=== PATIENT | male | born 1990 | race Caucasian/White ===

== ENCOUNTER 2022-01-24 11:33 | Emergency (ER) | payer OTHER ==
[2022-01-24 11:53] LABS: HEMOGLOBIN 14.1 gm/dl (14.0-17.5); RED BLOOD COUNT 4.85 M/UL (4.20-5.50); WHITE BLOOD COUNT 10.2 K/UL (4.5-11.0)
[2022-01-24 12:54] LABS: BUN/CREATININE RATIO 15 (0-10)
[2022-01-24] MEDS ORDERED: IBUPROFEN800 MG PO (13:04)
== END 2022-01-24 13:36 | disposition home or self-care (01) ==
LOC: ER1 11:33
PROVIDERS: Emergency Medicine
DX: R07.89 Other chest pain (principal); F17.200 Nicotine dependence, unspecified, uncomplicated
CPT/HCPCS: 71045; 80053; 82550; 82553; 84484; 85025; 93005; 99285

== ENCOUNTER 2022-03-02 20:50 | Emergency (ER) | payer OTHER ==
[~2022-03-02 20:50] MED LIST: IBUPROFEN800 MG PO
[2022-03-02 22:00] LABS: HEMOGLOBIN 14.9 gm/dl (14.0-17.5); RED BLOOD COUNT 5.03 M/UL (4.20-5.50); WHITE BLOOD COUNT 8.4 K/UL (4.5-11.0)
[2022-03-02 22:18] LABS: BUN/CREATININE RATIO 15 (0-10)
== END 2022-03-02 23:20 | disposition home or self-care (01) ==
LOC: ER1 20:50
PROVIDERS: Physician Assistant
DX: R51.9 Headache, unspecified (principal); R06.02 Shortness of breath; F17.210 Nicotine dependence, cigarettes, uncomplicated; Z20.822 Contact with and (suspected) exposure to COVID-19
CPT/HCPCS: 0240U; 70450; 71045; 80053; 82550; 82553; 84484; 85025; 96361; 96374; 99285; J1885

== ENCOUNTER 2022-03-10 22:46 | Emergency (ER) | payer OTHER | END 2022-03-11 01:10 | disposition left against medical advice (07) | LOC: ER1 22:46 | DX: Z53.21 Procedure and treatment not carried out due to patient leaving prior to being seen by health care provider (principal) | CPT/HCPCS: 93005 ==